=== PATIENT | female | born 1995 | race Caucasian/White ===

== ENCOUNTER 2023-10-28 12:23 | Outpatient (CLI) | payer BC, SELFPAY ==
--- NOTE | ~2023-10-28 | US_ITS ---
EXAMINATION: US OB /maternal detail DATE: 10/28/2023 13:26 INDICATION: survey TECHNIQUE: Multiple obstetric sonographic images performed. FINDINGS: No prior studies for comparison. There is a single living fetus in vertex presentation. The placenta is on the maternal right without placenta previa. Amniotic fluid volume is subjectively normal. cardiac activity and movement is noted with a heart rate of 144 beats per minute. The following anatomy was identified as normal: 4 chamber heart 3 vessel cord cord insertion kidneys urinary bladder stomach spine diaphragm ventricles cisterna magna cerebellum The following biometric data were obtained: BPD: 53mm corresponds to gestational age 22 weeks 0 days. Head circumference: 166 mm corresponds to gestational age 19 weeks 2 days. Abdominal circumference: 144 mm corresponds to gestational age 19 weeks 5 days. Femur length: 32 mm corresponds to gestational age 19 weeks 6 days. Head circumference to abdominal circumference ratio: 1.15 (normal range for expected gestational age is 1.07-1.25). Estimated weight: 315 grams +/- 47 grams using Hadlock method. IMPRESSION: 1: Single living intrauterine with an estimated gestational age of 20weeks 2days by current ultrasound measurements, with an EDC of 03/14/2024 in vertex presentation. 2. Normal survey. Reviewed, dictated and finalized at location L. NS PICKER IMPRESSION: 1: Single living intrauterine with an estimated gestational age of 20 weeks 2days by current ultrasound measurements, with an EDC of 03/14/2024 in katharine natividad presentation. 2. Normal survey.
== END 2023-10-28 12:24 | disposition home or self-care (01) ==
LOC: ANHIMG 12:24
PROVIDERS: PCP Internal Medicine
DX: Z36.9 Encounter for antenatal screening, unspecified (principal); Z3A.20 20 weeks gestation of pregnancy
CPT/HCPCS: 76805

== ENCOUNTER 2025-04-11 11:28 | Outpatient (CLI) | payer OTHER, SELFPAY ==
--- NOTE | ~2025-04-11 | XR_ITS ---
AP and oblique views of the SI joints Clinical history abnormal immunological findings FINDINGS: SI joints and hip joints are intact. No degenerative or erosive change evident. No sclerosi s. No fracture or dislocation. Soft tissues are unremarkable. IMPRESSION: Unremarkable exam. Reviewed, dictated and finalized at location M. IMPRESSION: Unremarkable exam.
--- NOTE | ~2025-04-11 | XR_ITS ---
Left Hand Technique: PA and lateral views were obtained. Clinical History: Abnormal immunological findings Findings: No acute fracture or dislocation is seen. Osseous alignment is anatomic. Joint spaces are p reserved. Soft tissues are unremarkable. Impression: Unremarkable left hand. Reviewed, dictated and finalized at location M. Impression: Unremarkable left hand.
--- NOTE | ~2025-04-11 | XR_ITS ---
Right Hand Technique: PA and lateral views were obtained. Clinical History: Abnormal immunological findings Findings: No acute fracture or dislocation is seen. Osseous alignment is anatomic. Joint spaces are p reserved. Soft tissues are unremarkable. Impression: Unremarkable right hand. Reviewed, dictated and finalized at location M. Impression: Unremarkable right hand.
== END 2025-04-11 11:29 | disposition home or self-care (01) ==
LOC: MICIMG 11:30
PROVIDERS: PCP Physician Assistant; Visit Provider Physician Assistant
DX: R76.8 Other specified abnormal immunological findings in serum (principal)
CPT/HCPCS: 72202; 73120